=== PATIENT | female | born 1970 | race Two or more races ===

== ENCOUNTER 2023-04-28 20:16 | Emergency (ER) | payer OTHER ==
[~2023-04-28] VITALS: Ht 154.9 cm; Wt 56.2 kg
== END 2023-04-28 22:44 | disposition home or self-care (01) ==
LOC: ER 20:17
DX: T23.201A Burn of second degree of right hand, unspecified site, initial encounter (principal); X10.2XXA Contact with fats and cooking oils, initial encounter; Y93.89 Activity, other specified; Y92.89 Other specified places as the place of occurrence of the external cause; Z88.0 Allergy status to penicillin